=== PATIENT | male | born 1955 | race Caucasian/White ===

== ENCOUNTER 2017-07-14 09:17 | Day surgery (SDC) | payer OTHER ==
[~2017-07-14] VITALS: Ht 165.1 cm; Wt 83.0 kg
[2017-07-14 10:36] VITALS: Ht 165.1 cm; Wt 83.0 kg
[2017-07-14] MEDS ORDERED: omeprazole PO (10:47)
[2017-07-14] MEDS ORDERED: atorvastatin PO (10:47)
[2017-07-14] MEDS ORDERED: LIDOCAINE 4% SOLUTION 50 ML BTL ONE (10:49)
[2017-07-14 10:56] VITALS: BP 129/65; PULSE 63; RESP 12
--- NOTE | 2017-07-14 11:18 | OPPN ---
Date/Time of Note Date/Time of Note DATE: 07/14/17 TIME: 11:16 Proc Note GI Procedure Date 07/14/17 Indication: diagnostic Pre-procedure Diagnosis chronic heart burn Post-procedure Diagnosis nodular esophagis gerd gastritis Procedure Performed: Endoscopy Surgeon see signature line Prepress Manager none Anesthesia Type: moderate sedation Tourniquet Time none EBL none Transfusion required none Biopsy 1: gastric esophageal bx Grafts/Implants none Tubes/Drains none Complication(s) none Procedure Description under mod sedation egd showed nodular esophagus gerd gastritis bx done KAILYN BENTON MD Jul 14, 2017 11:18
[2017-07-14] MEDS ORDERED: FENTAnyl 50 MCG/ML VIAL ONE (11:24)
[2017-07-14] MEDS ORDERED: MIDAZOLAM 1 MG/ML 2 ML INJ ONE ×2 (11:24)
--- NOTE | 2017-07-15 07:19 | GILP ---
DATE OF PROCEDURE: 07/14/2017 PROCEDURE: Esophagogastroduodenoscopy. PREOPERATIVE DIAGNOSIS: Patient presenting with history of a chronic heartburn, which is unresponsi ve to routine therapy and he does not take any medications at this time. He takes usually Omeprazol e and it does not help him. To rule out gastroesophageal reflux disease, Ramirez's esophagus, peptic ulcer disease. POSTOPERATIVE DIAGNOSES: 1. Diffuse nodular esophagus noted. Biopsies were done. 2. Multiple erosions were noted above the GE junction. Biopsies were done. 3. Patchy gastritis was noted in the stomach which is of milder degree. 4. Duodenum appeared normal. DESCRIPTION OF PROCEDURE: After informed written consent was obtained, the patient was asked to lie on the left lateral side. Intravenous anesthesia was given which included 4 mg Versed and 50 mcg o f fentanyl. When the patient became somnolent, the Olympus video upper endoscope was introduced int o the oropharynx, then into the esophagus. Esophagus showed superficial nodular mucosal surface. T here is a malignant process a benign process not known. Random biopsies were obtained. Several ero sions were noted just above the GE junction that from each other, consistent with reflux e sophagitis. Multiple biopsies were obtained. Scope at this time was advanced into the stomach. St omach showed several areas of erythema with no ulcers, no neoplasm. Biopsy was done from the antrum , lesser curvature and the fundus to rule out H. pylori infection. Duodenum was examined up to the end of the third portion, which appeared normal. Duodenum was examined up to the end of the third p ortion. Scope at this time was withdrawn and the procedure was terminated. PLAN: Recommend change omeprazole to Dexalant 60 mg once a mg a day and wait for the pathology repo rt. Dictated By: KAILYN BARBOUR/TORSTEN Conf#: [id number] DID#: [id number]
== END 2017-07-14 18:15 | disposition home or self-care (01) ==
LOC: GIL 09:17
PROVIDERS: ATTEND Internal Medicine Gastroenterology
DX: K29.70 Gastritis, unspecified, without bleeding (principal)
CPT/HCPCS: 43239; 88305; 88312; J2250; J3010; Z7610